=== PATIENT | female | born 1995 | race Caucasian/White ===

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

== ENCOUNTER 2018-10-06 00:54 | Emergency (ER) | payer MEDICAID ==
[~2018-10-06] VITALS: Ht 152.4 cm; Wt 57.5 kg
[~2018-10-06 00:54] MED LIST changes: +DOCU-131 PO; -DOCU-30 PO; +FERR325T18 PO; -FERR325T20 PO
--- NOTE | 2018-10-06 00:58 | NUR ---
PT CALLED TO TRIAGE, NO ANSWER
[2018-10-06 01:03] VITALS: BP 119/74
[2018-10-06 01:47] LABS: BASOPHILS # (AUTO) 0.06 x10^3/uL (0-0.1); BASOPHILS % (AUTO) 1 % (0-1); EOSINOPHILS # (AUTO) 0.09 x10^3/uL (0-0.4); EOSINOPHILS % (AUTO) 1 % (1-7); LYMPHOCYTES # (AUTO) 3.26 x10^3/uL (1-3.4); LYMPHOCYTES % (AUTO) 35 % (22-44); MD NO; MEAN CORPUSCULAR HEMOGLOBIN 30.6 pg (27.0-34.8); MEAN CORPUSCULAR HGB CONC 32.6 g/dL (32.4-35.8); MEAN CORPUSCULAR VOLUME 93.9 fL (80-100); MONOCYTES # (AUTO) 0.64 x10^3/uL (0.2-0.8); MONOCYTES % (AUTO) 7 % (2-9); NEUTROPHILS # (AUTO) 5.43 x10^3/uL (1.8-6.8); NEUTROPHILS % (AUTO) 57 % (42-75); PLATELET COUNT 511 x10^3/uL (130-400); RED BLOOD COUNT 4.35 x10^6/uL (3.82-5.3); RED CELL DISTRIBUTION WIDTH 14.3 % (9.6-15.2)
[2018-10-06 01:53] LABS: ALBUMIN 3.9 g/dL (3.4-5.0); ANION GAP 5 mmol/L (5-15); CALCIUM 8.7 mg/dL (8.5-10.1); CHLORIDE 112 mmol/L (98-107); CREATININE 0.98 mg/dL (0.55-1.02)
== END 2018-10-06 02:32 | disposition home or self-care (01) ==
LOC: ED 01:39
DX: N93.8 Other specified abnormal uterine and vaginal bleeding (principal)
CPT/HCPCS: 36415; 80048; 82040; 84703; 85025; 99283

== ENCOUNTER 2019-09-18 21:40 | Emergency (ER) | payer MEDICAID ==
[~2019-09-18] VITALS: Ht 152.4 cm; Wt 66.9 kg
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
[2019-09-18 22:39] LABS: HCG UR SG 1.011 (1.003-1.030); MICROSCOPIC NOT IND
--- NOTE | 2019-09-18 22:48 | NUR ---
clean catch urine sent to lab. lights dimmed for patient, blanket.
[2019-09-18 23:14] LABS: BASOPHILS # (AUTO) 0.03 x10^3/uL (0-0.1); BASOPHILS % (AUTO) 1 % (0-1); EOSINOPHILS # (AUTO) 0.04 x10^3/uL (0-0.4); EOSINOPHILS % (AUTO) 1 % (1-7); LYMPHOCYTES # (AUTO) 2.47 x10^3/uL (1-3.4); LYMPHOCYTES % (AUTO) 42 % (22-44); MD NO; MEAN CORPUSCULAR HEMOGLOBIN 31.1 pg (27.0-34.8); MEAN CORPUSCULAR HGB CONC 33.1 g/dL (32.4-35.8); MEAN PLATELET VOLUME 8.2 fL (7.4-10.4); MONOCYTES # (AUTO) 0.63 x10^3/uL (0.2-0.8); MONOCYTES % (AUTO) 11 % (2-9); NEUTROPHILS # (AUTO) 2.66 x10^3/uL (1.8-6.8); NEUTROPHILS % (AUTO) 46 % (42-75); PLATELET COUNT 443 x10^3/uL (130-400); RED BLOOD COUNT 4.63 x10^6/uL (3.82-5.3); RED CELL DISTRIBUTION WIDTH 15.1 % (9.6-15.2)
[2019-09-18 23:19] LABS: ALBUMIN 3.9 g/dL (3.4-5.0); ANION GAP 7 mmol/L (5-15); CALCIUM 8.4 mg/dL (8.5-10.1); CHLORIDE 105 mmol/L (98-107)
[2019-09-18 23:23] LABS: ALANINE AMINOTRANSFERASE 17 U/L (12-78); ALKALINE PHOSPHATASE 81 U/L (45-117); BILIRUBIN,TOTAL 0.4 mg/dL (0.2-1.0); CREATININE 0.84 mg/dL (0.55-1.02); TOTAL PROTEIN 7.9 g/dL (6.4-8.2)
--- NOTE | 2019-09-18 23:23 | NUR ---
patient resting calmly. reports still has headache, requested pain meds, let md know.
[2019-09-18 23:54] VITALS: BP 110/78
--- NOTE | 2019-09-18 23:55 | NUR ---
discharge teaching reviewed. shows understanding.
[2019-09-18] MEDS ORDERED: IBUPROFEN 600 MG TABLET ONE (23:57)
[2019-09-18] MEDS ORDERED: IBUPROFEN 200 MG TABLET ONE (23:57)
[2019-09-19] MEDS ORDERED: IBUPROFEN 800 MG TABLET PO ONE
== END 2019-09-19 00:08 | disposition home or self-care (01) ==
LOC: ED 23:45
DX: U07.1 COVID-19 (principal); R05 Cough; R51 Headache; R50.9 Fever, unspecified; R94.31 Abnormal electrocardiogram [ECG] [EKG]; Z90.81 Acquired absence of spleen
CPT/HCPCS: 36415; 71045; 80053; 81003; 81025; 83605; 84145; 85025; 87040; 93005; 99285; U0001

== ENCOUNTER 2020-07-14 16:07 | Emergency (ER) | payer MEDICAID ==
[~2020-07-14] VITALS: Ht 152.4 cm; Wt 64.0 kg
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
[2020-07-14] MEDS ORDERED: KETOROLAC 30 MG/1 ML IM ONE (18:00)
[2020-07-14] MEDS ORDERED: KETOROLAC 60 MG/2 ML ONE (18:21)
--- NOTE | 2020-07-14 18:26 | NUR ---
BREAK RN: [employer] PER JUN.
[2020-07-14 19:00] VITALS: BP 110/71
== END 2020-07-14 19:02 | disposition home or self-care (01) ==
LOC: ED 18:07
DX: S16.1XXA Strain of muscle, fascia and tendon at neck level, initial encounter (principal); S09.90XA Unspecified injury of head, initial encounter; V89.2XXA Person injured in unspecified motor-vehicle accident, traffic, initial encounter; Y93.89 Activity, other specified; Y92.89 Other specified places as the place of occurrence of the external cause; Y99.8 Other external cause status
CPT/HCPCS: 70450; 72125; 96372; 99285; J1885